=== PATIENT | female | born 1990 | race Caucasian/White ===

== ENCOUNTER 2017-06-05 10:08 | Emergency (ER) | payer OTHER, SELFPAY ==
[2017-06-05 10:23] VITALS: BP 116/80; PULSE 71; RESP 20; TEMP 37.1; O2SAT 97; BMI 25.7
--- NOTE | 2017-06-05 10:54 | HMH.EDUTC ---
[facility] [place] Clinical [place]ression: Strep pharyngitis Disposition: Home, Self-Care Condition on Discharge: Good Instructions: DI for Strep Throat Additional Instructions: * Start antibiotic LEI and be sure to take as ordered for the FULL length of time although you should start to feel better in 24-48 hours. * change toothbrush and toothpaste 24-48 hours after starting antibiotic * Monitor Temp. Tylenol every 4 hours as needed no more then 5 times a day or 4000mg in 24 hours and/or ibuprofen every 6 hours as needed no more then 3200mg in 24 hours (as long as your primary care doctor has told you that it is ok to take both) for fever/aches/pain. ER if fever no less than 101 despite tylenol and Ibuprofen * Encourage fluids, water, gatorade, powerade, pedialyte if infant/toddler/child * cold fluids, popsicles, ice cream feel good * you are contagious until you have taken the antibiotic for 24 hours. No school tomorrow. * Avoid kissing anyone, including parents. No eating or drinking after anyone. You are contagious. Follow up IMMEDIATELY for new or worsening symptoms OR no noticeable improvement over the next 24-48 hours. 911 for difficulty breathing or swallowing Prescriptions: Amoxicillin [Amoxicillin 875MG Tab] 875 mg PO Q12H #20 tab Forms: Work/School Release Time of Disposition: 11:19 Medical Decision Making Vital Signs: 06/05/17 10:23 Temperature 98.7 F Temperature Source Oral Pulse Rate [Right Brachial] 71 Respiratory Rate 20 Blood Pressure [Right Arm] 116/80 Blood Pressure Mean [Right Arm] 92 Blood Pressure Source [Right Arm] Automatic Cuff Blood Pressure Position [Right Arm] Sitting 02 Sat by Pulse Oximetry 97 Oxygen Delivery Method Room Air - Lab Data Lab results reviewed: Yes: I reviewed the patient's lab results. Lab Results 06/05/17 10:55: Influenza Type A Ag Negative, Influenza Type B Ag Negative Strep Positive - Silas Inquiry Pt receiving controlled substance: No [facility] [place] - General Stated complaint: fever,sore throat Time Seen by Provider: 06/05/17 10:54 Mode of Arrival: Family Vehicle Source of Information: Patient Limitations: No Limitations Description of Symptoms (Recalled from Triage Doc. by RN): FEVER, COUGH, SORE THROAT. HEENT Symptoms (Recalled from RN notes): Yes (FEVER, SORE THROAT) Resp Symptoms (Recalled from RN notes): Yes (COUGH) Skin Symptoms (Recalled from RN notes): No MS Symptoms (Recalled from RN notes): No Functional Status (Recalled from RN notes): NA - History of Present Illness Provider Complaint: c/o fever, aches, sore throat. Started w/ scratchy throat last night, woke up feeling worse today. Exposed to flu at work. Hasn't taken or tried anything for symptoms. - Related Data Previous Rx's Medication Instructions Recorded Amoxicillin [Amoxicillin 875MG Tab] 875 mg PO Q12H #20 tab 06/05/17 Allergies Allergy/AdvReac Type Severity Reaction Status Date / Time No Known Allergies Allergy Unverified 05/06/17 14:50 - Worker's Comp Is this a Worker's Comp case?: No [facility] History I have reviewed the patient's past medical history: Yes (denies PMHx) Other Surgeries: Yes: Tubal Ligation - *Social History Smoking Status: Never smoker Alcohol Intake: never - Psychiatric History Expresses thoughts of harming self/others: None Suicide Plan Description: No Plan ROS Obtained: Yes Systems reviewed as appropriate & no additional complaints - Constitutional Constitutional: Reports body ache, Reports chills, Reports fatigue, Reports fever(s), Reports headache(s), Reports poor appetite (drinking well) - Eyes Eyes: Denies eye discharge - ENT Ears, Nose, Mouth, and Throat: Denies difficulty swallowing, Denies otalgia, Denies nasal congestion, Reports nasal discharge, Reports pain with swallowing, Denies sinus pain, Reports sore throat, Denies throat swelling - Cardiovascular Cardiovascular: Denies chest pain, Denies irregular heart rhythm
[2017-06-05 10:55] LABS: UTC Influenza A Antigen Negative (Negative); UTC Influenza B Antigen Negative (Negative)
--- NOTE | 2017-06-05 10:59 | ED_ITS ---
[facility] [place] Clinical Impression: Strep pharyngitis Disposition: Home, Self-Care Condition on Discharge: Good Instructions: DI for Strep Throat Additional Instructions: * Start antibiotic LEI and be sure to take as ordered for the FULL length of time although you should start to feel better in 24-48 hours. * change toothbrush and toothpaste 24-48 hours after starting antibiotic * Monitor Temp. Tylenol every 4 hours as needed no more then 5 times a day or 4000mg in 24 hours and/or ibuprofen every 6 hours as needed no more then 3200mg in 24 hours (as long as your primary care doctor has told you that it is ok to take both) for fever/aches/pain. ER if fever no less than 101 despite tylenol and Ibuprofen * Encourage fluids, water, gatorade, powerade, pedialyte if infant/toddler/ child * cold fluids, popsicles, ice cream feel good * you are contagious until you have taken the antibiotic for 24 hours. No school tomorrow. * Avoid kissing anyone, including parents. No eating or drinking after anyone. You are contagious. Follow up IMMEDIATELY for new or worsening symptoms OR no noticeable improvement over the next 24-48 hours. 911 for difficulty breathing or swallowing Prescriptions: Amoxicillin [Amoxicillin 875MG Tab] 875 mg PO Q12H #20 tab Forms: Work/School Release Time of Disposition: 11:19 Medical Decision Making Vital Signs: 06/05/17 10:23 Temperature 98.7 F Temperature Source Oral Pulse Rate [Right Brachial] 71 Respiratory Rate 20 Blood Pressure [Right Arm] 116/80 Blood Pressure Mean [Right Arm] 92 Blood Pressure Source [Right Arm] Automatic Cuff Blood Pressure Position [Right Arm] Sitting 02 Sat by Pulse Oximetry 97 Oxygen Delivery Method Room Air - Lab Data Lab results reviewed: Yes: I reviewed the patient's lab results. Lab Results 06/05/17 10:55: Influenza Type A Ag Negative, Influenza Type B Ag Negative Strep Positive - Silas Inquiry Pt receiving controlled substance: No [facility] [place] - General Stated complaint: fever,sore throat Time Seen by Provider: 06/05/17 10:54 Mode of Arrival: Family Vehicle Source of Information: Patient Limitations: No Limitations Description of Symptoms (Recalled from Triage Doc. by RN): FEVER, COUGH, SORE THROAT. HEENT Symptoms (Recalled from RN notes): Yes (FEVER, SORE THROAT) Resp Symptoms (Recalled from RN notes): Yes (COUGH) Skin Symptoms (Recalled from RN notes): No MS Symptoms (Recalled from RN notes): No Functional Status (Recalled from RN notes): NA - History of Present Illness Provider Complaint: c/o fever, aches, sore throat. Started w/ scratchy throat last night, woke up feeling worse today. Exposed to flu at work. Hasn't taken or tried anything for symptoms. - Related Data Previous Rx's Medication Instructions Recorded Amoxicillin [Amoxicillin 875MG Tab] 875 mg PO Q12H #20 tab 06/05/17 Allergies Allergy/AdvReac Type Severity Reaction Status Date / Time No Known Allergies Allergy Unverified 05/06/17 14:50 - Worker's Comp Is this a Worker's Comp case?: No [facility] History I have reviewed the patient's past medical history: Yes (denies PMHx) Other Surgeries: Yes: Tubal Ligation - *Social History Smoking Status: Never smoker Alcohol Intake: never - Psychiatric History Expresses thoughts of harming self/others: None Suicide Plan Description: No Plan ROS Obtained:
[2017-06-05 11:29] LABS: UTC Strep Screen (Rapid) Positive (Negative)
== END 2017-06-05 11:22 | disposition home or self-care (01) ==
LOC: ER 10:14 → UTC 10:18
PROVIDERS: Emergency Provider Nurse Practitioner Family; Family Provider Physician Assistant
DX: J02.0 Streptococcal pharyngitis (principal)
CPT/HCPCS: 87804; 87880; 99201

== ENCOUNTER 2017-07-07 14:03 | Emergency (ER) | payer SELFPAY ==
[2017-07-07 14:21] VITALS: BP 118/60; PULSE 78; RESP 20; TEMP 37.1; O2SAT 99; BMI 26.7
--- NOTE | 2017-07-07 14:33 | HMH.EDUTC ---
[facility] [place] Clinical Impression: URI (upper respiratory infection) Qualifiers: URI type: unspecified URI Qualified Code(s): J06.9 - Acute upper respiratory infection, unspecified Disposition: Home, Self-Care Condition on Discharge: Good Instructions: DI for Cough -- Adult, Sore Throat Additional Instructions: * Monitor Temp. Tylenol and/or Ibuprofen as needed. ER if fever is no less than 101 despite alternating Tylenol and Ibuprofen * Encourage fluids, water, Gatorade, powerade, pedialyte if /toddler/or child * Warm salt water gargles for throat irritation *Warm fluids *Sore throat lozenges *Sleep elevated *humidifier or vaporizer Lots of rest Increase fluids, water, Gatorade, powerade *Your throat swab was sent to lab for culture. Those results area typically sent to your primary care physician. Be sure to follow up in 2-3 days if no improvement so they can review those results and treat if necessary If you dont have primary care I recommend you get one, but in the mean time you will have to return to a walk in clinic Follow up IMMEDIATELY for new or worsening of symptoms OR no noticeable improvement over the next 48-72 hours. 911 immediately for any life threatening symptoms such as chest pain or difficulty breathing Prescriptions: Azithromycin [Z-Britton 250mg Tab] 250 mg PO UD DOSE PK #6 tab predniSONE [Prednisone 20mg Tab] 20 mg PO BID #10 tab Referrals: Zenobia Bauman PA [Primary Care Provider] - Forms: Work/School Release Time of Disposition: 14:53 Medical Decision Making - Medical Records Medical records reviewed: Yes: I reviewed the patient's medical records. Vital Signs: 07/07/17 14:21 07/07/17 14:49 Temperature 98.7 F 97.8 F Temperature Source Temporal Artery Scan Pulse Rate 77 Pulse Rate [Right] 78 Respiratory Rate 20 20 Blood Pressure 118/69 Blood Pressure [Right Arm] 118/60 Blood Pressure Mean [Right Arm] 79 Blood Pressure Source [Right Arm] Automatic Cuff Blood Pressure Position [Right Arm] Sitting 02 Sat by Pulse Oximetry 99 Oxygen Delivery Method Room Air - Lab Data Lab results reviewed: Yes: I reviewed the patient's lab results. Lab Results 07/07/17 14:23: Influenza Type A Ag Negative, Influenza Type B Ag Negative, Strep Scn Rapid Clinic Negative Orders (Tests/Meds): ORDERS Category Date Time Status Strep Screen Confirmation Stat Micro 07/07/17 14:23 Received - Silas Inquiry Pt receiving controlled substance: No Silas was queried for this patient: No [facility] [place] - General Stated complaint: nausea headache weak Mode of Arrival: Ambulatory Source of Information: Patient Limitations: No Limitations Description of Symptoms (Recalled from Triage Doc. 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 States that she has been having sore throat, bodyaches and fever State that she has been exposed to several ill children States that she wanted to get checked to make sure that she didn't have flu or strep that she would pass on to the kids at daycare - Related Data Previous Rx's Medication Instructions Recorded Amoxicillin [Amoxicillin 875MG Tab] 875 mg PO Q12H #20 tab 06/05/17 Azithromycin [Z-Britton 250mg Tab] 250 mg PO UD DOSE PK #6 tab 07/07/17 predniSONE [Prednisone 20mg 20 mg PO BID #10 tab 07/07/17 Tab] Allergies Allergy/AdvReac Type Severity Reaction Status Date / Time No Known Allergies Allergy Verified 07/07/17 14:23 - Worker's Comp Is this a Worker's Comp case?: No [facility] History I have reviewed the patient's past medical history: Yes Other Surgeries: Yes: Tubal Ligation - Social History Smoking Status: Never smoker
--- NOTE | 2017-07-07 14:36 | ED_ITS ---
[facility] [place] Clinical Impression: URI (upper respiratory infection) Qualifiers: URI type: unspecified URI Qualified Code(s): J06.9 - Acute upper respiratory infection, unspecified Disposition: Home, Self-Care Condition on Discharge: Good Instructions: DI for Cough -- Adult, Sore Throat Additional Instructions: * Monitor Temp. Tylenol and/or Ibuprofen as needed. ER if fever is no less than 101 despite alternating Tylenol and Ibuprofen * Encourage fluids, water, Gatorade, powerade, pedialyte if /toddler/or child * Warm salt water gargles for throat irritation *Warm fluids *Sore throat lozenges *Sleep elevated *humidifier or vaporizer Lots of rest Increase fluids, water, Gatorade, powerade *Your throat swab was sent to lab for culture. Those results area typically sent to your primary care physician. Be sure to follow up in 2-3 days if no improvement so they can review those results and treat if necessary If you don? t have primary care I recommend you get one, but in the mean time you will have to return to a walk in clinic Follow up IMMEDIATELY for new or worsening of symptoms OR no noticeable improvement over the next 48-72 hours. 911 immediately for any life threatening symptoms such as chest pain or difficulty breathing Prescriptions: Azithromycin [Z-Britton 250mg Tab] 250 mg PO UD DOSE PK #6 tab predniSONE [Prednisone 20mg Tab] 20 mg PO BID #10 tab Referrals: Zenobia Bauman PA [Primary Care Provider] - Forms: Work/School Release Time of Disposition: 14:53 Medical Decision Making - Medical Records Medical records reviewed: Yes: I reviewed the patient's medical records. Vital Signs: 07/07/17 14:21 07/07/17 14:49 Temperature 98.7 F 97.8 F Temperature Source Temporal Artery Scan Pulse Rate 77 Pulse Rate [Right] 78 Respiratory Rate 20 20 Blood Pressure 118/69 Blood Pressure [Right Arm] 118/60 Blood Pressure Mean [Right Arm] 79 Blood Pressure Source [Right Arm] Automatic Cuff Blood Pressure Position [Right Arm] Sitting 02 Sat by Pulse Oximetry 99 Oxygen Delivery Method Room Air - Lab Data Lab results reviewed: Yes: I reviewed the patient's lab results. Lab Results 07/07/17 14:23: Influenza Type A Ag Negative, Influenza Type B Ag Negative, Strep Scn Rapid Clinic Negative Orders (Tests/Meds): ORDERS Category Date Time Status Strep Screen Confirmation Stat Micro 07/07/17 14:23 Received - Silas Inquiry Pt receiving controlled substance: No Silas was queried for this patient: No [facility] [place] - General Stated complaint: nausea headache weak Mode of Arrival: Ambulatory Source of Information: Patient Limitations: No Limitations Description of Symptoms (Recalled from Triage Doc. 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
[2017-07-07 14:42] LABS: UTC Influenza A Antigen Negative (Negative); UTC Influenza B Antigen Negative (Negative); UTC Strep Screen (Rapid) Negative (Negative)
[2017-07-07 14:49] VITALS: BP 118/69; PULSE 77; RESP 20; TEMP 36.6
== END 2017-07-07 14:59 | disposition home or self-care (01) ==
PROVIDERS: Emergency Provider Nurse Practitioner; Family Provider Physician Assistant; PCP Physician Assistant
DX: J06.9 Acute upper respiratory infection, unspecified (principal)
CPT/HCPCS: 87804; 87880; 99202

== ENCOUNTER → 2018-03-17 10:28 | Outpatient (CLI) | payer BC, SELFPAY | PROVIDERS: PCP Emergency Medicine; Visit Provider Nurse Practitioner Family | DX: N89.8 Other specified noninflammatory disorders of vagina (principal) | CPT/HCPCS: 87210 ==